=== PATIENT | female | born 1985 | race Caucasian/White ===

== ENCOUNTER 2019-06-28 20:33 | Emergency (ER) | payer MEDICAID, SELFPAY ==
--- NOTE | 2019-06-28 20:37 | W.ED.GENAD ---
Discharge Plan Disposition Patient Disposition: HOME Condition: Good Discharge Details Clinical Impression: Dysfunctional uterine bleeding Primary Care Provider: Geetha Leslie ED Provider: Ramirez Guzman Meds and New Rx's Prescriptions: New medroxyprogesterone [Provera] 10 mg tablet 10 mg PO HS Qty: 3 RF: 0 Continued Tilia Fe 1-20(5)/1-30(7) /1mg-35mcg (9) Tablet PO DAILY RF: 0 lamotrigine [Lamictal] 100 mg Tablet RF: 0 Discharge Instructions Additional Instructions: Take Provera for the next 5 days. Hold your other control. Start the placebo week on Thursday and resume your normal control pill. Contact [facility] for follow-up after the new year. Return to ED for faintness, shortness of breath, chest pain, abdominal pain. Referrals: [facility] [Provider Group] Medical Decision Making Patient presenting with heavy vaginal bleeding with irregular periods for the last few months despite being on control. She typically follows OB at [facility] but came here tonight. She would like to transfer care to our facility. She is not orthostatic. She looks well. She is not . Case discussed briefly with Dr. Garcia, on-call for OB. Will place on Provera 10 mg p.o. daily for 5 days. Will have patient follow-up with [facility] here after the new year. Return to ED for chest pain, shortness of breath, faintness, abdominal pain. HPI General Mode of arrival: ambulatory. Date/Time Provider Initiated Documentation: 06/28/19 20:36. Limitations to Documentation: no limitations. Information obtained by: patient and RN notes reviewed. HPI Narrative: Patient presents to ED with heavy vaginal bleeding. Patient has been having very irregular periods for the last few months. She was placed on Tilia by OB to try to regulate her.. She reports that she continues to have 2-3 periods a month. She is now bleeding through tampons and pads within 1 to 2 hours of changing. She has a little bit of cramps but no real pain. She has no lightheadedness, chest pain, shortness of breath. She has been bleeding heavy like this for the last 24 to 36 hours. She denies . Related Data Home Medications Medication Instructions Recorded Confirmed Tilia Fe PO DAILY 06/28/19 lamotrigine [Lamictal] 06/28/19 medroxyprogesterone [Provera] 10 mg PO HS #3 tab 06/28/19 Previous Rx's Medication Instructions Recorded medroxyprogesterone [Provera] 10 mg PO HS #3 tab 06/28/19 Allergies Allergy/AdvReac Type Severity Reaction Status Date / Time fluoxetine HCl [From Prozac] AdvReac Intermediate VIOLENT Unverified 06/28/19 21:19 BEHAVIOR sertraline HCl [From Zoloft] AdvReac Intermediate VIOLENT Unverified 06/28/19 21:19 BEHAVIOR Review of Systems Narrative: As documented in HPI otherwise negative as below. Const: no fever, chills, weakness Resp: no cough, SOB, pleuritic pain CV: no CP, diaphoresis, edema, syncope GI: no abdominal pain, nausea, vomiting, diarrhea Neuro: no headache, numbness, focal weakness, confusion PFSH Medical History (Updated 06/28/19 @ 21:17 by Ramirez Guzman MD) Bipolar disorder (Chronic) Surgical History S/P LEEP (Chronic) Family History Mother Diabetes Grandfather Diabetes Grandmother Diabetes aunt Mental retardation Other Heart disease Social History Smoking/Tobacco Use Status: Former Tobacco Use Alcohol Intake: former Drug use: Never Substance use type: does not use Do you feel safe in your relationship?: Yes Exam Narrative Exam Narrative: Vitals: Afebrile. Normal vital signs and normal orthostatics. Const: WDWN female in NAD. HEENT: NC/AT. Normal facial exam. Eyes: Normal conjunctiva and sclera. Neck: Supple. Trachea midline. Lungs: Normal respiratory effort. Cor: RRR without murmur/gallop. Good radial pulses. Pelvic: Deferred. Neuro: A+O x 3. No gross motor or sensory deficits. Ext: No C/C/E. Skin: Warm and dry.
[2019-06-28 20:39] VITALS: BP 137/80; PULSE 80; RESP 18; TEMP 36.4; O2SAT 99
[2019-06-28 20:51] VITALS: BP 114/90; BP 123/83; BP 130/82; PULSE 77
[2019-06-28] MEDS: medroxyPROGESTERone 10 MG TAB PO ×2 (21:45)
== END 2019-06-28 21:45 | disposition home or self-care (01) ==
LOC: ER 22:33
PROVIDERS: Emergency Provider Emergency Medicine; PCP Nurse Practitioner
DX: N93.8 Other specified abnormal uterine and vaginal bleeding (principal)
CPT/HCPCS: 81025; 99283